=== PATIENT | male | born 1975 | race African-American/Black ===

== ENCOUNTER 2018-11-28 13:47 | Emergency (ER) | payer BC ==
[2018-11-28] MEDS ORDERED: Ketorolac Tromethamine 30 MG/ML VIAL ONE (15:41)
== END 2018-11-28 16:20 | disposition home or self-care (01) ==
LOC: ERS 13:47
DX: M54.41 Lumbago with sciatica, right side (principal); M54.42 Lumbago with sciatica, left side
CPT/HCPCS: 96372; 99283; J1885

== ENCOUNTER 2019-04-25 12:15 | Outpatient (CLI) | payer BC ==
--- NOTE | 2019-04-25 13:30 | MRI ---
EXAM: MRI Cervical Spine WO Con PROVIDED CLINICAL HISTORY: Cervical radiculopathy COMPARISON: None FINDINGS: Cervical alignment appears normal. Vertebral body heights appear preserved. No focal concerning regio nal marrow signal abnormality apparent. The visualized posterior fossa, cervicomedullary junction and cervical spinal cord demonstrate normal signal and morphology. At C2-3, there is bilateral facet arthritis with mild bilateral foraminal narrowing. No significant c entral canal stenosis apparent. At C3-4, there is bilateral facet arthritis and right-sided uncinate process hypertrophy. There is mo derate right and mild left foraminal narrowing. No significant central canal stenosis apparent. At C4-5, there is bilateral facet arthritis and bilateral uncinate process hypertrophy with moderate- severe right and moderate left foraminal narrowing. No significant central canal stenosis apparent. At C5-6, there is no significant central canal or foraminal narrowing apparent. At C6-7, there is no significant central canal or foraminal narrowing apparent. At C7-T1, there is no significant central canal or foraminal narrowing apparent. IMPRESSION: Cervical degenerative changes producing foraminal narrowing as described.
--- NOTE | 2019-04-25 14:05 | MRI ---
MRI OF LUMBAR SPINE PERFORMED WITHOUT CONTRAST ENHANCEMENT: 04/25/19 HISTORY: Low back pain with tingling going down left leg. The vertebral bodies are normal in height. Disc spaces appear fairly well preserved. There is no sign ificant periaortic adenopathy and the visualized portions of the kidneys appear unremarkable. T12-L1: Unremarkable. L1-2: Mild facet hypertrophic change. No canal or foraminal stenosis. L2-3: There are facet hypertrophic changes at this level without canal or foraminal stenosis. L3-4: Canal is mildly stenotic. There are degenerative facet changes present. No significant foramina l stenosis. Facet changes are slightly asymmetric on the right side. L4-5: There is a disc bulge at this level, but in addition there is a central disc protrusion and wha t appears to be possibly some minimal extrusion with some disc changes going both superior and inferi or to the disc level. The canal shows a moderately severe canal stenosis at this level. There are fac et and ligamentous hypertrophic changes. There is mild bilateral foraminal narrowing. L5-S1: The canal is mildly stenotic. There are degenerative facet and ligamentous hypertrophic sheriff e in conjunction with the disc bulge. There appears to be a small central to slightly left paracentra l annular disc tear. There is mild to moderate left sided foraminal narrowing. IMPRESSION: 1. Somewhat congenitally narrowed appearing canal. 2. Prominent disc bulge with central disc protrusion at L4-5 and what appears to be some minimal extrusion of disc material both superior and inferior to the disc level. Moderately severe canal viviana nosis is noted at this level. Other findings as described above. POS: OFF
== END 2019-04-25 12:16 | disposition home or self-care (01) ==
LOC: BICMRI 12:15
PROVIDERS: ATTEND Neurological Surgery
DX: M51.16 Intervertebral disc disorders with radiculopathy, lumbar region (principal); M48.061 Spinal stenosis, lumbar region without neurogenic claudication; M48.07 Spinal stenosis, lumbosacral region; M47.22 Other spondylosis with radiculopathy, cervical region; M48.02 Spinal stenosis, cervical region
CPT/HCPCS: 72141; 72148